=== PATIENT | female | born 1960 | race Caucasian/White ===

== ENCOUNTER 2020-02-18 11:42 | Inpatient (IN) | payer BC ==
[~2020-02-18] VITALS: Ht 152.4 cm; Wt 86.6 kg
[~2020-02-18 11:42] MED LIST: AMLODIPINE BESYL5 M1 PO; BUSPIRONE HCL10 MG PO; CARAFATE 1 GM TA1 G1 PO; LOPID600 MG PO; LOVASTATIN 20 M20 MG PO; NITROSTAT0.4 M1 SUBLING; TOPROL XL25 MG PO; TRAMADOL 50 MG50 MG PO; TYLENOL325 MG PO; VENLAFAXIN75 MG/1 T2 PO
[2020-02-18 11:47] VITALS: BP 150/97
[2020-02-18] MEDS ORDERED: NORVASC 2.5 MG2.5 M1 PO (11:51)
[2020-02-18 12:09] LABS: ABSOLUTE BASOPHILS 0.1 thou/uL (0.0-0.2); ABSOLUTE EOSINOPHILS 0.2 thou/uL (0.0-0.7); ABSOLUTE LYMPHOCYTES 2.1 thou/uL (0.8-5.3); ABSOLUTE MONOCYTES 0.6 thou/uL (0.0-1.2); ABSOLUTE NEUTROPHILS 6.7 thou/uL (1.6-8.1); BASOPHILS 0.9 %; EOSINOPHILS 2.5 %; HEMOGLOBIN 11.4 gm/dL (12.0-15.0); LYMPHOCYTES 21.7 %; MCHC 33.6 g/dL (28.0-37.0); MCV 89.4 fL (80.0-100.0); MONOCYTES 5.7 %; MPV 7.5 fl. (7.2-11.1); NUCLEATED RBCS 0 /100WBC; PLATELET COUNT* 341 thou/uL (150-400); POLYS 69.2 %; RDW-CV 14.8 % (10.5-14.5); WBC 9.7 thou/uL (4.0-11.0)
[2020-02-18 12:21] LABS: CALCIUM 8.6 mg/dL (8.5-10.1); CREATININE 0.7 mg/dL (0.6-1.3); POTASSIUM 4.2 mmol/L (3.5-5.1)
[2020-02-18 12:24] LABS: APTT 24.3 Seconds (25.0-31.3); PROTIME 10.5 Seconds (9.20-11.50)
[2020-02-18 12:35] LABS: CK-MB MASS 1.5 ng/mL (<0.5-3.6); TOTAL BILIRUBIN 0.3 mg/dL (<0.1-1.0); TOTAL PROTEIN 8.1 g/dL (6.4-8.2)
--- NOTE | 2020-02-18 14:25 | EKG ---
[place] [address] ELECTROCARDIOGRAM REPORT Name: CAREN CARUSO Room: [address]R.#: [id number] Admission: 02/18/20 Attend Phys: Hebert Molina, Discharge: Date of : 62 Date of Service: 02/18/20 1147 Report #: [id number] THIS REPORT FOR: //name// [facility] ED Test Date: 2020-02-18 Test Time: 11:47:17 Pat Name: CAREN CARUSO Department: Room: [facility] Gender: F Deadener: WENDY : 1960 Requested By: Pepe Friedman Order Number: [id number] MD: John Alexander Measurements Intervals [place] Rate: 90 P: 42 NM: 152 QRS: 14 QRSD: 88 T: 34 QT: 375 QTc: 459 Interpretive Statements Sinus rhythm Abnormal R-wave progression, early transition Abnormal inferior Q waves Compared to ECG 10/12/2014 08:15:29 no change Electronically Signed On 02-18-2020 14:25:36 [employer] by John Alexander [email or web address] <ELECTRONICALLY SIGNED> By: John Alexander MD, [facility] 02/18/20 1425 1147 1147 John Alexander MD, [facility] /EPI
[2020-02-18 16:30] VITALS: BP 105/88
[2020-02-18 16:57] VITALS: BP 147/92
[2020-02-18] MEDS ORDERED: CARVEDILOL12.5 MG PO (17:24)
[2020-02-18] MEDS ORDERED: ASPIRIN325 PO (17:25)
[2020-02-18] MEDS ORDERED: LIPITOR 20 MG T20 M1 PO (17:25)
[2020-02-18] MEDS ORDERED: FLONASE 0.05%50 MCG NARES (17:26)
[2020-02-18] MEDS ORDERED: CATAPRES0.1 MG PO (17:26)
[2020-02-18] MEDS ORDERED: CYMBALTA60 MG PO (17:26)
[2020-02-18] MEDS ORDERED: NEURONTIN600 MG PO (17:27)
[2020-02-18] MEDS ORDERED: METFORMIN HCL500 M3 PO (17:28)
[2020-02-18] MEDS ORDERED: PRAVASTATIN SOD40 MG PO (17:28)
[2020-02-18] MEDS ORDERED: SEROQUEL 25 MG25 MG PO (17:29)
[2020-02-18] MEDS ORDERED: ZANAFLEX4 M1 PO (17:29)
[2020-02-18] MEDS ORDERED: DESYREL150 MG PO (17:29)
[2020-02-18 20:00] VITALS: BP 120/79
[2020-02-19] VITALS: BP 88/55
[2020-02-19 04:00] VITALS: BP 91/64
[2020-02-19 04:44] LABS: HEMATOCRIT 29.3 % (37.0-47.0); HEMOGLOBIN 9.8 gm/dL (12.0-15.0); MCH 29.5 pg (26.0-34.0); MCHC 33.4 g/dL (28.0-37.0); MCV 88.6 fL (80.0-100.0); MPV 7.5 fl. (7.2-11.1); RBC 3.31 mil/uL (4.20-5.00); RDW-CV 14.3 % (10.5-14.5); WBC 8.3 thou/uL (4.0-11.0)
[2020-02-19 05:41] LABS: ANION GAP 6 mmol/L (7-16); BUN 14 mg/dL (7-18); CALCIUM 8.6 mg/dL (8.5-10.1); CHLORIDE 104 mmol/L (98-107); CO2 29 mmol/L (21-32); CREATININE 0.9 mg/dL (0.6-1.3); GLUCOSE 126 mg/dL (70-99); MAGNESIUM 2.1 mg/dL (1.8-2.4); POTASSIUM 4.1 mmol/L (3.5-5.1); SODIUM 139 mmol/L (136-145)
[2020-02-19 05:55] LABS: CHOLESTEROL 153 mg/dL (<200); HDL CHOLESTEROL 26 mg/dL (>40); LDL CHOLESTEROL 84 mg/dL (<100); TC:HDL 5.9 Ratio (Not establshd); TRIGLYCERIDE 217 mg/dL (<150); VLDL 43 mg/dL (<40)
[2020-02-19 06:02] LABS: SERUM ASSESSMENT Clear
[2020-02-19 08:30] VITALS: BP 105/59
--- NOTE | 2020-02-19 09:08 | CON ---
[address] [address] CONSULTATION Name: CAREN CARUSO Room: [address] M.R.#: [id number] Admission: 02/18/20 Attend Phys: Hebert Molina MD Discharge: Date of : 62 Report #: [id number] THIS REPORT FOR: cc: Emilia Bravo MD, Tuongvan T. MD ~ Michael Covington MD [facility] DATE OF SERVICE: 02/18/2020 CARDIOLOGY CONSULT INDICATION: Chest pain. HISTORY OF PRESENT ILLNESS: The patient is a very pleasant 59-year-old white female with history of coronary disease based on findings of coronary and aortic atherosclerosis on CT scans in May of this year when she was being treated for COVID-19 infection. The patient had critical illness with COVID-19 in May of this year and was treated both at [facility]. She was hospitalized and then in rehabilitation for a total of 4 weeks. She has had intermittent chest pain since then. She had one hospitalization in the interim where she was evaluated and ruled out for myocardial infarction. The patient was here today for stress testing, after which she noted left of sternum chest pain with some intermittent left arm numbness and tingling as well that was not necessarily associated with the chest discomfort. On further questioning, she states she had been having the chest pain off and on all day today even prior to her stress test. Of note, she had been on beta-blockers for hypertension. Her beta-mo was held for her stress test. She presented to the stress test rather tachycardic. The stress test was completed without incident. At the completion of her stress test, her blood pressure was somewhat low. She was given 500 mL bolus of IV saline and her home dose of metoprolol with some control in her blood pressure. Nuclear scanning was completed. At the completion of the scan, she noted to the nuclear radiation engineer she continued to have pain and was escorted to the Emergency Room for further evaluation. Initial troponin in the Emergency Room was 0.07 and subsequently less than 0.06. EKG showed sinus rhythm without significant ST-segment abnormality. At the time of interview, the patient states that she still has a mild dull discomfort in the left upper chest that is worse with movement and deep inspiration. She reports associated diaphoresis in her neck area. She did not have any significant nausea or vomiting. No further complaints were elicited. PAST MEDICAL HISTORY: 1. Coronary artery disease. 2. Hypertension. 3. Dyslipidemia. 4. [place] [address] CONSULTATION Name: CAREN CARUSO Room: [address] M.R.#: [id number] Admission: 02/18/20 Attend Phys: Hebert Molina MD Discharge: Date of : 62 Report #: [id number] 5. Sleep apnea. 6. . 7. Hernia repair. 8. Hysterectomy. FAMILY HISTORY: Positive for heart disease in both her mother and father. SOCIAL HISTORY: The patient quit smoking in 2014. She denies use of alcohol. ALLERGIES: ATORVASTATIN, FENTANYL, HYDROCODONE, LAMOTRIGINE. Note, she is taking atorvastatin presently. HOME MEDICATIONS: Amlodipine 5 mg daily, atorvastatin 20 mg daily, Wellbutrin SR 150 mg b.i.d., Coreg 25 mg b.i.d., Cymbalta 60 mg daily, Neurontin 600 mg t.i.d., metformin 500 mg b.i.d., metoprolol tartrate 50 mg b.i.d., Naprosyn 500 mg b.i.d., Protonix 40 mg daily, Seroquel 25 mg nightly, Zanaflex 4 mg q. 6 hours p.r.n. muscle spasms, trazodone 150 mg nightly. REVIEW OF SYSTEMS: A 14-point review of systems is positive for fatigue, chest discomfort, leg swelling, orthopnea, palpitations, paroxysmal nocturnal dyspnea, cough, shortness of breath, polyuria, easy bruising, joint pain, myalgias, dysuria and occasional hematuria, dizziness, headaches, lightheadedness, numbness, paresthesias, depression and anxiety. Otherwise, a 14-point review of systems was unremarkable. PHYSICAL EXAMINATION: VITAL SIGNS: Blood pressure 105/88, pulse is 80 and regular. GENERAL: This is a pleasant lady, who does not appear to be in distress. Mood and affect appropriate. HEENT: Extraocular muscles intact. Mucous membranes are moist. NECK: Shows no jugular venous distention. There are no carotid bruits. CHEST: Reveals clear lung galeana without wheezes. Breath sounds somewhat diminished. CARDIOVASCULAR: Reveals a regular rhythm without gallop or murmur. ABDOMEN: Reveals a protuberant abdomen, somewhat tympanitic, but without tenderness. EXTREMITIES: Shows no edema. Peripheral pulses 2+ and palpable. LABORATORY DATA: A 12-lead EKG shows sinus rhythm without significant ST or T-wave abnormality. Labs are reviewed. Troponin 0.07 and less than 0.06. IMPRESSION AND RECOMMENDATIONS: [place] [address] CONSULTATION Name: CAREN CARUSO Room: [address] LuizCherry#: [id number] Admission: 02/18/20 Attend Phys: Hebert Molina MD Discharge: Date of : 62 Report #: [id number] 1. Chest discomfort waxing and waning throughout the day. Troponin is very minimally elevated at 0.07. I doubt this represents acute coronary syndrome. Stress testing earlier today showed normal perfusion and no evidence of reversible defect. She had normal LV systolic function. Concerned this may represent residual from her critical illness with COVID and some pleuritic irritation or possibly some gastrointestinal issue, although she has been on Protonix for some time. Do not recommend further cardiac workup at this time. Would complete evaluation with one more troponin. Consider treatment with nonsteroidal anti-inflammatory. 2. Hypertension. Blood pressure low normal presently. She is on 2 different beta-blockers in the form of carvedilol and metoprolol. At this point in time, I would discontinue metoprolol and continue carvedilol by itself. Could add additional antihypertensive medications as needed. If tachycardia remains an issue, would consider diltiazem or verapamil. 3. Dyslipidemia. Check fasting lipid profile and adjust statin agent as needed. SHE DOES REPORT AN ALLERGY, although seems to be tolerating low-dose atorvastatin at present. 4. Tachycardia. The patient had significant tachycardia throughout her stress test this morning. I suspect this was due to beta-mo withdrawal. I also suspect this may have contributed to the slight bump in her troponin. <ELECTRONICALLY SIGNED> By: Michael Covington MD, [facility] 02/19/20 0908 1633 1940Michael Covington MD, FACC /nt
[2020-02-19] MEDS ORDERED: NITROSTAT0.4 MG SUBLING (09:32)
[2020-02-19] MEDS ORDERED: OMEPRAZOLE40 MG PO (09:32)
[2020-02-19 11:00] VITALS: BP 94/64
[2020-02-19 16:00] VITALS: BP 122/76
[2020-02-19 20:00] VITALS: BP 128/77
[2020-02-20] VITALS (16 sets, daily range): BP systolic 84–136; BP diastolic 54–90
--- NOTE | 2020-02-20 14:07 | EKG ---
[place] [address] ELECTROCARDIOGRAM REPORT Name: CAREN CARUSO Room: [address] ADM IN [facility]#: [id number] Admission: 02/19/20 Attend Phys: Hebert Molina, Discharge: Date of : 62 Date of Service: 02/20/20 1331 Report #: [id number] THIS REPORT FOR: //name// [facility] Test Date: 2020-02-20 Test Time: 13:31:33 Pat Name: CAREN CARUSO Department: Room: [address] Gender: F Student Nurse: : 1960 Requested By: Michael Covington Order Number: [id number] MD: John Alexander Measurements Intervals [place] Rate: 84 P: 47 [place]: 166 QRS: 17 QRSD: 78 T: 31 QT: 377 QTc: 446 Interpretive Statements Sinus rhythm Abnormal inferior Q waves Compared to ECG 02/18/2020 11:47:17 No significant changes Electronically Signed On 02-20-2020 14:07:45 [employer] by John Alexander [email or web address] <ELECTRONICALLY SIGNED> By: John Alexander MD, FACC 02/20/20 1407 1331 1331 John Alexander MD, [facility] /EPI
--- NOTE | 2020-02-20 15:23 | CARD ---
[address] [address] CARDIAC CATH REPORT Name: CAREN CARUSO Room: [address] IN [facility]#: [id number] Admission: 02/19/20 Attend Phys: Hebert Molina MD Discharge: Date of : 62 Report #: [id number] THIS REPORT FOR: cc: Emilia Bravo MD, Tuongvan T. MD ~ Michael Covington MD [facility] APPROVED REPORT Study performed: 02/20/2020 13:22:51 Patient Details Patient Status: In-Patient Room #: The patient is a 59 year-old female Event Personnel Carlos Greenfield Monitor, Latha Aguilar Monitor, Kenna Sanabria RTR ScrubCoco Tiffany RN RN, Michael Covington Income Tax Investigator Procedure Narrative The patient was brought electively to the Cardiac Catheterization Laboratory and was prepped and draped in a sterile manner. The right wrist was infiltrated with 1% Lidocaine subcutaneous anesthesia. A Slender [place]idesheath sheath was inserted into the . Coronary angiography was performed using coronary diagnostic catheters. The right coronary system was accessed and visualized with a JL4 catheter. The left coronary system was accessed and visualized with a [place] 4.0 6fr catheter. Left ventriculogram was performed in ORANTES projection. The patient tolerated the procedure well and there were no complications associated with the procedure. There was no hematoma. Intraoperative Conscious Sedation Sedation start time: 1358 Case end Time: 1421 Fentanyl 50 mcg Versed 2.0 mg Fluoro Time: 4.3 minutes Dose: DAP 40257 cGycm2 584 mGy Contrast Type and Amount: Visipaque 95 ml Diagnostic Cath Left Main The left main coronary artery is normal and bifurcates into a left anterior descending and circumflex coronary artery. LAD The left anterior descending coronary artery [place] [address] CARDIAC CATH REPORT Name: CAREN CARUSO Robert Room: [address] IN ..#: [id number] Admission: 02/19/20 Attend Phys: Hebert Molina MD Discharge: Date of : 62 Report #: [id number] proximal mid and distal portion. The distal portion of the vessel wraps around the apex and supplies the distal inferior wall. Diagonal 1 The first diagonal has minimal approximately 10% plaquing of its ostium. The remainder of the vessel is normal. Diagonal 2 The second diagonal branch is very small and normal. Circumflex The circumflex coronary artery is normal in its proximal mid and distal portion. OM1 A moderate-sized branch first obtuse marginal branch is normal. OM2 A moderate sized branched second obtuse marginal branch is normal. Right Coronary A codominant right coronary artery is normal in its proximal mid and distal portion. R PDA A small PDA appears normal. RPLV A small branch right posterior lateral LV branch is normal. Left Ventriculography Left Ventriculography was not performed. Hemodynamics The aortic pressure is 96/67 mmHg with a mean of 80 mmHg. The left ventricular pressure is 101/3 mmHg with a mean of mmHg. The left ventricular end diastolic pressure is 8 mmHg. Conclusion 1. Minimal nonocclusive coronary artery disease as outlined above. 2. Normal left ventricular end-diastolic pressure. Recommendations 1. Continue medical management and aggressive risk factor modification. <ELECTRONICALLY SIGNED> By: Michael Covington MD, FACC 02/20/20 1523 1523 1523Michaeemerita Covington MD, FACC /INF
== END 2020-02-20 18:40 | disposition home or self-care (01) | DRG 392 ==
LOC: M.ERS 11:42 → M.TBA-ER 13:52 → M.2W 16:38
PROVIDERS: Family Medicine; ADMIT Internal Medicine; ATTEND Internal Medicine
PROC: B211YZZ Fluoroscopy of Multiple Coronary Arteries using Other Contrast (ICD-10-PCS; principal; 2020-02-20)
PROC: 4A023N7 Measurement of Cardiac Sampling and Pressure, Left Heart, Percutaneous Approach (ICD-10-PCS; principal; 2020-02-20)
PROC: B215YZZ Fluoroscopy of Left Heart using Other Contrast (ICD-10-PCS; principal; 2020-02-20)
DX: K21.9 Gastro-esophageal reflux disease without esophagitis (principal); I10 Essential (primary) hypertension; I25.10 Atherosclerotic heart disease of native coronary artery without angina pectoris; E78.5 Hyperlipidemia, unspecified; J44.9 Chronic obstructive pulmonary disease, unspecified; R00.0 Tachycardia, unspecified; G89.29 Other chronic pain; K27.9 Peptic ulcer, site unspecified, unspecified as acute or chronic, without hemorrhage or perforation; M19.09 Primary osteoarthritis, other specified site; F32.9 Major depressive disorder, single episode, unspecified; G43.909 Migraine, unspecified, not intractable, without status migrainosus; K44.9 Diaphragmatic hernia without obstruction or gangrene; Z20.828 Contact with and (suspected) exposure to other viral communicable diseases; Z90.710 Acquired absence of both cervix and uterus; Z87.891 Personal history of nicotine dependence; Z88.8 Allergy status to other drugs, medicaments and biological substances; Z91.041 Radiographic dye allergy status; Z82.49 Family history of ischemic heart disease and other diseases of the circulatory system; Z88.6 Allergy status to analgesic agent; Z79.82 Long term (current) use of aspirin; Z79.899 Other long term (current) drug therapy